=== PATIENT | female | born 1970 | race Caucasian/White ===

== ENCOUNTER 2016-08-26 10:16 | Day surgery (SDC) | payer OTHER ==
--- NOTE | 2016-08-25 21:12 | HPN ---
Date/Time of Note Date/Time of Note DATE: 08/25/16 TIME: 21:12 ALBA WELLS MD Aug 25, 2016 21:12
[2016-08-26] VITALS (10 sets, daily range): BP systolic 93–138; BP diastolic 55–76; PULSE 64–99; RESP 16–28; Ht 165.1 cm; Wt 89.0 kg
[~2016-08-26] VITALS: Ht 165.1 cm; Wt 89.0 kg
[~2016-08-26 10:16] MED LIST: ATENOLOL; HCTZ; NEXIUM
[2016-08-26] MEDS ORDERED: HYD25 PO (11:11)
[2016-08-26] MEDS ORDERED: ESOM20CA PO (11:11)
[2016-08-26] MEDS ORDERED: ATEN50TA PO (11:11)
[2016-08-26 12:24] LABS: ADD SCAN DIFF NO
[2016-08-26 13:08] LABS: ADD UMIC YES; URINE BILIRUBIN (Dip) NEGATIVE (NEGATIVE); URINE BLOOD (Dip) TRACE (NEGATIVE); URINE COLOR LT. YELLOW (YELLOW); URINE GLUCOSE (Dip) NEGATIVE (NEGATIVE); URINE KETONES (Dip) NEGATIVE (NEGATIVE); URINE LEUKOCYTE ESTERASE (Dip) 1+ (NEGATIVE); URINE NITRITE (Dip) NEGATIVE (NEGATIVE); URINE TOTAL PROTEIN (Dip) TRACE (NEGATIVE); URINE UROBILINOGEN (Dip) 0.2 E.U./dL (0.1-1.0)
[2016-08-26 13:13] LABS: BASOPHIL # 0.1 10^3/ul (0.0-0.1); BASOPHILS % 1.1 % (0.0-2.0); EOSINOPHILS # 0.2 10^3/ul (0.0-0.5); EOSINOPHILS % 2.5 % (0.0-7.0); HEMATOCRIT 33.2 % (37.0-47.0); HEMOGLOBIN 12.1 g/dl (12.0-16.0); LYMPHOCYTES % 30.8 % (15.0-51.0); MEAN CORPUSCULAR HEMOGLOBIN 31.2 pg (29.0-33.0); MEAN CORPUSCULAR HGB CONC 36.4 g/dl (32.0-37.0); MEAN CORPUSCULAR VOLUME 85.6 fl (82.0-101.0); MONOCYTE # 0.8 10^3/ul (0.3-0.9); MONOCYTES % 8.7 % (0.0-11.0); NEUTROPHIL # 5.4 10^3/ul (1.6-7.5); NEUTROPHILS % 56.5 % (39.0-77.0); PLATELET COUNT 640 10^3/UL (140-415); RED BLOOD COUNT 3.88 10^6/ul (4.20-5.40); RED CELL DISTRIBUTION WIDTH 11.8 % (11.5-14.5); WHITE BLOOD COUNT 9.6 10^3/ul (4.8-10.8)
[2016-08-26 13:36] LABS: BACTERIA,URINE MODERATE; SQUAMOUS EPITHELIAL CELL,UR FEW
--- NOTE | 2016-08-26 13:50 | OPR ---
Date/Time of Note Date/Time of Note DATE: 08/26/16 TIME: 13:49 Operative Report Procedure Date: Aug 26, 2016 Preoperative Diagnosis retain k wires wrist s/p orif Postoperative Diagnosis same Operation Performed removal deep metal Surgeon: ALBA WELLS MD Anesthesia: MAC Anesthesiologist: BART DEVLIN MD Pt Condition Post Procedure: stable ALBA WELLS MD Aug 26, 2016 13:50
[2016-08-26] MEDS ORDERED: LIDOCAINE 2% (SDV) 5 ML INJ ONE (14:24)
[2016-08-26] MEDS ORDERED: PROPOFOL 20 ML ONE (14:24)
[2016-08-26] MEDS ORDERED: MIDAZOLAM 1 MG/ML 2 ML INJ ONE (14:25)
[2016-08-26] MEDS ORDERED: DEXAMETHASONE 4 MG/ML 1 ML INJ ONE (14:37)
[2016-08-26] MEDS ORDERED: ONDANSETRON 4 MG INJ ONE (14:37)
[2016-08-26] MEDS ORDERED: CEFAZOLIN 1 GM INJ ONE (14:37)
[2016-08-26] MEDS ORDERED: METOCLOPRAMIDE 10 MG INJ ONE (14:37)
[2016-08-26] MEDS ORDERED: FENTAnyl 50 MCG/ML VIAL ONE (14:41)
[2016-08-26] MEDS ORDERED: OXYCODONE/ACETAMINOPHEN (5/325) TAB PO PRN (15:00)
[2016-08-26] MEDS ORDERED: ONDANSETRON 4 MG INJ IV PRN (15:00)
[2016-08-26] MEDS ORDERED: DIPHENHYDRAMINE 50 MG INJ IV PRN (15:00)
[2016-08-26] MEDS ORDERED: MEPERIDINE 25 MG INJ IV PRN (15:00)
[2016-08-26] MEDS ORDERED: FENTAnyl 50 MCG/ML VIAL IV PRN (15:00)
[2016-08-26] MEDS ORDERED: PROCHLORPERAZINE 10 MG INJ IV PRN (15:00)
[2016-08-26] MEDS: HYDROmorphONE (0.2 MG/ML) 10ML SYG IV PRN ×3 (15:23→15:39)
--- NOTE | 2016-08-26 16:42 | OPR ---
DATE OF OPERATION: 08/26/2016 PREOPERATIVE DIAGNOSIS: Retained Kee wire transfixing the distal radial joint. POSTOPERATIVE DIAGNOSIS: Retained K-wires transfixing distal radial joint, right wrist. PROCEDURE PERFORMED: Removal transfixing pin. SURGEON: Alba Raymond MD. WHEAT COMBINE DRIVER: Staff. FLIGHT RADIO OPERATOR: Dr. Pacheco. ANESTHESIA TECHNIQUE: General anesthetic by the anesthesiologist. DISCUSSION: This patient previously had open reduction internal fixation of the distal radius fracture, sufficiently comminuted that I was forced to use the volar variable angle radius plate plus radial pin plate. The K-wire in the radial pin plate was transfixed to radius , distal radial joint, and the ulna for stability and needed to come out. SHe is here for removal of that transfixing pin across the distal radioulnar joint. INFORMED CONSENT: At the time of the scheduled operative procedure, we talked to the patient about the risks and hazards of surgery, talked about operative mortality, wound infection, nerve injury, good result, bad result and potential complications. SURGICAL PAUSE: I examined the patient in the holding area, linda in the surgical incision, confirmed the operative procedure and plan, explained that we were going to remove one transfixing pin and leave the radius plate and the radial pin plate in place. They were doing no harm and they were not causing any trouble. I was not going to do an additional disection to remove what was not bothering her. I believe she understood that. DESCRIPTION OF PROCEDURE: The patient was taken to surgery, anesthetized as above, sterile prep and drape performed. A pneumatic tourniquet inflated to 250 mmHg. Using fluoroscopic control, we identified the location of the transfixing pin, the proximal end. We dissected down to the radial PIN plate and found it, exposed the pin, grasped it and removed it. During the procedure , we could see this radial nerve and protected it throughout. We had it behind retractors. The wound was closed using interrupted Vicryl rapid suture and a bulky dressing. DISCHARGE MEDICATIONS 1. Hydrocodone with acetaminophen. 2. Keflex. FOLLOWUP: Will be our office in a week to start her on early motion. Dictated By: ALBA MCCRAY/SANAZ Conf#: [id number] DID#: [id number] [facility]
--- NOTE | 2016-08-26 18:48 | RADRPT ---
PROCEDURE: Intraoperative imaging of the right wrist with fluoroscopy. CLINICAL INDICATION: Right wrist pain. Hardware removal. Intraoperative. TECHNIQUE: 2 images of the right wrist were obtained in the operating room with an image intensifi er. No radiologist was in attendance. 6 seconds of fluoroscopy time was used. COMPARISON: Right wrist intraoperative imaging dated 05/24/2016. FINDINGS: Images demonstrate plates and screws in the distal right radius. IMPRESSION: 1. Intraoperative imaging of the right wrist. RPTAT: QQ .Anil Billings MD, MD Date Time Electronically viewed and signed by .Anil Billings MD, on 08/26/2016 18:48 .R/
--- NOTE | 2016-08-28 14:53 | RADRPT ---
Vent Rate: 68 bpm RR Interval: 0 msec KS Interval: 166 msec QRS Duration: 84 msec QT Interval: 434 msec QTC Interval: 461 msec P-R-T Hayes: 40 - 73 - 54 degrees Normal sinus rhythm Normal ECG Electronically Signed By: Gildardo Davis [id number]
--- NOTE | 2016-08-30 09:03 | OPR ---
DATE OF OPERATION: 08/26/2016 The patient was previously here, had open reduction internal fixation of a distal radius fracture wi th a volar buttress plate, and a radial pin plate with K-wires. One K-wire was through the , tr ansfixing the distal radial joint and into the distal ulna, and it was meant to come out. The patien t is here for removal of that transfixing Kee wire, right wrist. PAST MEDICAL HISTORY: She had a fracture of this wrist several months ago. PHYSICAL EXAMINATION: GENERAL: A well-nourished, well-developed female. HEENT: Pupils accommodation. Tympanic membranes clear. Good hygiene. LUNGS: Clear. ABDOMEN: Soft. EXTREMITIES: Lower extremities unremarkable. A well healed distal radius fracture, right. Admitted for removal of transfixion Kee wire. Dictated By: ALBA MCCRAY/SANAZ Conf#: [id number] DID#: [id number]
== END 2016-08-26 17:20 | disposition home or self-care (01) ==
LOC: SDS 10:16
PROVIDERS: ATTEND Orthopaedic Surgery Hand Surgery
DX: Z45.89 Encounter for adjustment and management of other implanted devices (principal)
CPT/HCPCS: 20680; 73090; 81001; 84703; 85025; 88300; 93005; J0690; J1100; J1170; J2250; J2405; J2765; J3010; Z7512; Z7610; 81003